=== PATIENT | male | born 1995 | race African-American/Black ===

== ENCOUNTER 2017-02-04 20:03 | Emergency (ER) | payer MEDICAID, OTHER ==
[~2017-02-04] VITALS: Ht 172.7 cm; Wt 79.4 kg
[~2017-02-04 20:03] MED LIST: BENADRYL25 M3 PO; KENALOG 0.1% CR15 GM APPLIC; KENALOG 0.1% LO60 ML APPLIC; MEDROL DOSEPAK4 MG ORAL; NKM
[2017-02-04] MEDS ORDERED: CLARITIN10 MG ORAL (21:10)
[2017-02-04] MEDS ORDERED: GUAIFENESIN-CO118 M1 ORAL (21:10)
[2017-02-04 21:45] VITALS: BP 122/44
--- NOTE | 2017-02-05 13:35 | Diagnostic Imaging Report ---
Indication: Chest pain, productive cough Technique: Single portable AP view of the chest. Findings: Comparison: None. Small circumscribed lucencies now project over the glenoid process of the right scapula. Small triangular osseous density now projects adjacent to the distal margin of the left clavicle. The extra pulmonary soft tissues, cardiomediastinal silhouette, pulmonary vasculature and parenchyma, and pleural surfaces are unremarkable. IMPRESSION: No evidence of acute cardiopulmonary disease, unchanged Suggestion of interval fracture of distal end of left clavicle, acuity indeterminate. Recommend dedicated left shoulder radiographs for further evaluation. Small cystic lucencies projecting over right glenoid process, nonspecific, may represent overlying soft tissue gas, vacuum phenomenon within the glenohumeral joint, or degenerative cysts. Recommend dedicated right shoulder radiographs for further evaluation..
--- NOTE | 2017-02-08 19:36 | Emergency Room Report ---
History of Present Illness General Chief Complaint: Upper Respiratory Illness Source: Patient Present Illness HPI Patient's 21-year-old male who presented after having increased cough and nasal congestion for several weeks. Patient gradual onset of symptoms. Patient was noted to have been coughing some yellow-green sputum. He had not been vomiting. He denied any fever. He reported having a moderate sore throat. He denied any leg pain or swelling. Patient had symptoms for several months. The patient had a previous been taking allergy medications. Allergies: Coded Allergies: No Known Allergies (Unverified , 10/30/12) Patient History Past Medical History: see triage record Reviewed Nursing Documentation: PMH: Agreed, PSxH: Agreed Nursing Documentation-PMH Past Medical History: No Stated History Review of Systems All Other Systems: negative except mentioned in HPI Physical Exam Vital Signs Date Time Temp Pulse Resp B/P Pulse Ox O2 Delivery O2 Flow Rate FiO2 02/04/17 20:31 98.1 86 18 122/44 98 Room Air General Appearance: well appearing, no apparent distress, alert, GCS 15 Head: normocephalic, atraumatic ENT: hearing grossly normal, normal voice Neck: full range of motion, supple Respiratory: no respiratory distress, speaking full sentences Gastrointestinal: normal inspection, normal bowel sounds, non tender, soft Musculoskeletal: normal inspection, back normal, digits/nails normal, no calf tenderness Neurologic: normal inspection, alert, oriented x3, responsive, normal gait Psychiatric: mood/affect normal Skin: no rash Medical Decision Making Diagnostic Impression: Primary Impression: Chronic cough ER Course Patient presented for cough. Differential diagnosis included but was not limited to bronchitis, pneumonia, pulmonary embolism, pericarditis, asthma, foreign body. X-ray imaging of the chest one view interpreted by me showed no evident infiltrate with normal cardiac size with no pneumothorax. The patient was given symptomatic treatment prescriptions.The patient is advised to follow up with primary care doctor in 1-2 days. Patient is advised to return if any worsening condition or if any changes in status that are concerning. Last Vital Signs Date Time Temp Pulse Resp B/P Pulse Ox O2 Delivery O2 Flow Rate FiO2 02/04/17 21:45 98.1 18 122/44 98 Room Air 02/04/17 20:35 72 Status: improved Disposition: HOME, SELF-CARE Condition: Stable Scripts Guaifenesin/Codeine Phos* (ROBITUSSIN AC*) 118 Ml Liquid 5 ML ORAL Q6H Y for For Cough, #118 ML 0 Refills Prov: Ezequiel Yarbrough 02/04/17 Loratadine (CLARITIN) 10 Mg Tablet 10 MG ORAL DAILY, #30 TAB Prov: Ezequiel Yarbrough 02/04/17 Referrals: NOT CHOSEN [facility]/,REFERRING (PCP) Patient Instructions: Upper Respiratory Infection, Adult Ezequiel Yarbrough February 08, 2017 19:36
== END 2017-02-04 21:42 | disposition home or self-care (01) ==
LOC: EMR 20:55
DX: R05 Cough (principal); R09.81 Nasal congestion
CPT/HCPCS: 71010; 99284

== ENCOUNTER 2017-03-06 00:28 | Emergency (ER) | payer MEDICAID ==
[~2017-03-06] VITALS: Ht 172.7 cm; Wt 79.8 kg
[~2017-03-06 00:28] MED LIST changes: +CLARITIN10 MG ORAL; +GUAIFENESIN-CO118 M1 ORAL
[2017-03-06 00:45] VITALS: BP 118/65
--- NOTE | 2017-03-06 00:58 | Emergency Room Report ---
History of Present Illness General Chief Complaint: Male Urogenital Problems Source: Patient Present Illness HPI 21YOM walk-in with 2 complaints 1) Cough for 6 months. Dry. No associated fever/chills. Improved with Rx cough syrup, loratadine given here in January. + fam history of asthma. Cough worse after training for football. 2) Left testicle pain. No acute trauma. No dysuria, dishcharge. 1 day. Negative STD testing last week. Allergies: Coded Allergies: No Known Allergies (Unverified , 10/30/12) Patient History Past Medical History: none Past Surgical History: none Pertinent Family History: asthma Social History: Denies: alcohol use, drug use, smoking Immunizations: UTD Reviewed Nursing Documentation: PMH: Agreed, PSxH: Agreed Review of Systems All Other Systems: negative except mentioned in HPI Physical Exam Vital Signs Date Time Temp Pulse Resp B/P Pulse Ox O2 Delivery O2 Flow Rate FiO2 03/06/17 00:36 98.1 80 18 118/65 98 Room Air Sp02 EP Interpretation: reviewed, normal General Appearance: normal inspection, well appearing, no apparent distress, alert, GCS 15, non-toxic, other - Very well appearing, laughing, texting on cell phone Head: normocephalic, atraumatic Eyes: bilateral eye EOMI, bilateral eye PERRL ENT: normal ENT inspection, hearing grossly normal, normal voice Neck: normal inspection, full range of motion, supple, no bony tend Respiratory: normal inspection, lungs clear, normal breath sounds, no respiratory distress, no retraction, no wheezing Cardiovascular #1: regular rate, rhythm, no edema Gastrointestinal: normal inspection, normal bowel sounds, non tender, soft, no guarding, no hernia Genitourinary: no CVA tenderness, penis normal, scrotum normal Musculoskeletal: normal inspection, back normal, normal range of motion, Opal' s Sign negative Neurologic: normal inspection, alert, oriented x3, responsive, fender finisher III-XII nml as tested, speech normal Psychiatric: normal inspection, judgement/insight normal, mood/affect normal Skin: normal inspection, normal color, no rash Medical Decision Making Diagnostic Impression: Primary Impression: Chronic cough Additional Impression: Left testicular pain ER Course Chronic cough - VSS. Afebrile. - Not hypoxic. No acute distress - Not worse with lying down, after eating. Doubt GERD - Worse with exercising, + fam history of asthma. Possible exercise induced asthma - Given duration, CAP also possibility although bronchitis viral most likely Dx - Rx Z-pack, Refill cough medicine, Ventolin to be used before/after training/ exercise Left testicular pain - No acute trauma - Non focal exam - Doubt torsion given well apperance, normal vertical lie of left testicle - UA: No WBCs or hematuria. Doubt epididmytis. - Advised to refrain from frequent sexual intercourse until pain resolves Last Vital Signs Date Time Temp Pulse Resp B/P Pulse Ox O2 Delivery O2 Flow Rate FiO2 03/06/17 00:36 98.1 80 18 118/65 98 Room Air Status: improved Disposition: HOME, SELF-CARE Scripts Albuterol Sulfate (VENTOLIN HFA) 18 Gm Hfa.aer.ad 1 PUFF INH EVERY 6 HOURS for For Cough, #18 GM 0 Refills Prov: FORREST JEFFREY M.D. 03/06/17 Azithromycin* (ZITHROMAX*) 250 Mg Tablet 250 MG ORAL DAILY, #6 TAB 0 Refills Take two tablets by mouth today, then take one tablet by mouth daily for four days Prov: FORREST JEFFREY M.D. 03/06/17 Guaifenesin/Codeine Phos* (ROBITUSSIN AC*) 118 Ml Liquid 5 ML ORAL Q6H Y for For Cough, #118 ML 0 Refills Prov: FORREST JEFFREY M.D. 03/06/17 FORREST JEFFREY M.D. Mar 06, 2017 00:58
[2017-03-06 01:03] LABS: APPEARANCE,URINE CLEAR; KETONES,URINE 2+ (NEGATIVE); LEUKOCYTE ESTERASE ,URINE 1+ (NEGATIVE); NITRITE,URINE NEGATIVE (NEGATIVE); PH,URINE 7 (4.5-8.0); PROTEIN,URINE NEGATIVE (NEGATIVE); UROBILINOGEN,URINE NORMAL MG/DL (0.0-1.0)
[2017-03-06] MEDS ORDERED: GUAIFENESIN-CO118 M1 ORAL (01:48)
[2017-03-06] MEDS ORDERED: VENTOLIN HFA18 GM INH (01:48)
[2017-03-06] MEDS ORDERED: AZITHROMYCIN250 MG ORAL (01:48)
[2017-03-06 01:55] LABS: RBC,URINE 0-2 /HPF (0 - 0)
[2017-03-06 01:56] LABS: AMORPHOUS SEDIMENT,UR MANY /LPF; BACTERIA,URINE FEW /HPF; SQUAMOUS EPITHELIAL CELL,UR FEW /LPF (NONE/OCC)
[2017-03-06 02:10] VITALS: BP 115/68
== END 2017-03-06 02:10 | disposition home or self-care (01) ==
LOC: EMR 00:45
DX: R05 Cough (principal); N50.812 Left testicular pain
CPT/HCPCS: 81003; 99284

== ENCOUNTER 2017-05-16 01:42 | Emergency (ER) | payer MEDICAID ==
[~2017-05-16] VITALS: Ht 172.7 cm; Wt 79.4 kg
[~2017-05-16 01:42] MED LIST changes: +AZITHROMYCIN250 MG ORAL; +VENTOLIN HFA18 GM INH
[2017-05-16] MEDS ORDERED: NKM (02:04)
[2017-05-16 02:05] VITALS: BP 149/79
[2017-05-16] MEDS ORDERED: AUGMENTIN 875-1 EAC1 ORAL (02:20)
[2017-05-16] MEDS ORDERED: CLARITIN-D 241 EACH PO (02:20)
--- NOTE | 2017-05-16 02:21 | Emergency Room Report ---
History of Present Illness General Chief Complaint: Earache Source: Patient Present Illness HPI This is a 22-year-old male with no past medical history. He presents with chief complaint. One is a chronic cough that has been ongoing for many months. He said it was started in August when he was in [place]. He gets sick and this has been coughing on and off. Seen multiple doctors here and had urgent care. Been on antibiotics with no relief. Cough medicine without any relief. Also got steroids. He came in also with the complaint of left ear pain. Onset for last 2 days. No recent cold. No nausea no vomiting. No fever or chills. Allergies: Coded Allergies: No Known Allergies (Unverified , 10/30/12) Patient History Past Medical History: see triage record, old chart reviewed Past Surgical History: none Pertinent Family History: none Social History: Denies: smoking Immunizations: other Reviewed Nursing Documentation: PMH: Agreed, PSxH: Agreed Nursing Documentation-PMH Past Medical History: No Stated History Review of Systems Eye: Denies: eye pain, blurred vision ENT: Reports: ear pain, Denies: nose congestion, throat swelling Respiratory: Reports: cough, Denies: shortness of breath Cardiovascular: Denies: chest pain, palpitations Gastrointestinal: Denies: abdominal pain, diarrhea, nausea, vomiting Musculoskeletal: Denies: back pain, joint pain Skin: Denies: rash Neurological: Denies: headache, numbness Endocrine: Denies: increased thirst, increased urine Hematologic/Lymphatic: Denies: easy bruising All Other Systems: negative except mentioned in HPI Physical Exam Vital Signs Date Time Temp Pulse Resp B/P (MAP) Pulse Ox O2 Delivery O2 Flow Rate FiO2 05/16/17 02:02 97.9 64 14 149/79 100 Room Air vitals unremarkable Sp02 EP Interpretation: reviewed, normal General Appearance: well appearing, no apparent distress, alert Head: normocephalic, atraumatic Eyes: bilateral eye PERRL, bilateral eye EOMI ENT: hearing grossly normal, normal pharynx, other - Left TM with effusion and bulging TM. Neck: full range of motion, supple, no meningismus Respiratory: chest non-tender, lungs clear, normal breath sounds Cardiovascular #1: regular rate, rhythm, no murmur Gastrointestinal: normal bowel sounds, non tender, no mass, no organomegaly, no bruit, non-distended Musculoskeletal: back normal, gait/station normal, normal range of motion Psychiatric: mood/affect normal Skin: warm/dry Medical Decision Making Diagnostic Impression: Primary Impression: Chronic cough Additional Impression: Left otitis media Qualified Codes: H65.02 - Acute serous otitis media, left ear ER Course Patient with a cough. Lungs are clear. No evidence of pneumonia. This may be a postnasal drip. No evidence of pneumonia. His ear show effusion. Most likely sinus related. We'll put on decongestant antibiotics. He may have allergies. If not better he may benefit from referral to see a specialist. Last Vital Signs Date Time Temp Pulse Resp B/P (MAP) Pulse Ox O2 Delivery O2 Flow Rate FiO2 05/16/17 02:02 97.9 64 14 149/79 100 Room Air Status: unchanged Disposition: HOME, SELF-CARE Condition: Stable Scripts Amoxicillin/Potassium Clav 875-125* (AUGMENTIN 875-125 TABLET*) 1 Each Tablet 1 TAB ORAL TWICE A DAY, #14 TAB Prov: AMANDA PERALTA M.D. 05/16/17 Loratadine/Pseudoephedrine (CLARITIN-D 24 HOUR TABLET) 1 Each Tab.er.24h 1 TAB PO DAILY, #30 TAB Prov: AMANDA PERALTA M.D. 05/16/17 Patient Instructions: Otitis Media, Adult, [id number] Additional Instructions: Followup with your DrVandana in 7 days. You may benefit from referral to see if nose and throat DrVandana or one specialist if not better. Return if symptom worsen. AMANDA PERALTA M.D. May 16, 2017 02:20
[2017-05-16 02:30] VITALS: BP 140/72
== END 2017-05-16 02:30 | disposition home or self-care (01) ==
LOC: EMR 02:15
DX: R05 Cough (principal); H65.02 Acute serous otitis media, left ear
CPT/HCPCS: 99284

== ENCOUNTER 2017-11-17 22:35 | Emergency (ER) | payer MEDICAID ==
[~2017-11-17] VITALS: Ht 172.7 cm; Wt 79.4 kg
[~2017-11-17 22:35] MED LIST changes: +AUGMENTIN 875-1 EAC1 ORAL; +CLARITIN-D 241 EACH PO
--- NOTE | 2017-11-17 23:14 | Emergency Room Report ---
History of Present Illness General Chief Complaint: General Complaint Source: Patient Present Illness HPI Patient presents with complaints of cough Reports of the cough has been ongoing for the past 2 years Denies any chest pain or shortness of breath Denies any vomiting patient feels that he has been more gassy than normal Denies any vomiting or diarrhea denies any recent travel However he reports that 2 years ago when he visited [place] is when his symptoms initially started Allergies: Coded Allergies: No Known Allergies (Unverified , 10/30/12) Patient History Past Medical History: see triage record Pertinent Family History: none Reviewed Nursing Documentation: PMH: Agreed, PSxH: Agreed Nursing Documentation-PMH Past Medical History: No Stated History Review of Systems All Other Systems: negative except mentioned in HPI Physical Exam Vital Signs Date Time Temp Pulse Resp B/P (MAP) Pulse Ox O2 Delivery O2 Flow Rate FiO2 11/17/17 22:47 97.7 70 16 131/78 99 Room Air 97.7 Sp02 EP Interpretation: reviewed, normal General Appearance: well appearing, no apparent distress Head: normocephalic, atraumatic Eyes: bilateral eye PERRL, bilateral eye EOMI ENT: hearing grossly normal, normal pharynx, TMs + canals normal, uvula midline Neck: full range of motion, supple, no meningismus, no bony tend Respiratory: lungs clear, normal breath sounds, no rhonchi, no respiratory distress, no retraction, no accessory muscle use Cardiovascular #1: normal peripheral pulses, regular rate, rhythm, no edema, no gallop, no JVD, no murmur Gastrointestinal: normal bowel sounds, non tender, soft, no mass, no organomegaly, non-distended, no guarding, no hernia, no pulsatile mass, no rebound Genitourinary: no CVA tenderness Musculoskeletal: normal inspection Neurologic: oriented x3, responsive, deputy general counsel III-XII nml as tested, motor strength/ tone normal, sensory intact Psychiatric: mood/affect normal Skin: normal color, no rash, warm/dry, palpation normal Lymphatic: normal inspection, no adenopathy Medical Decision Making Diagnostic Impression: Primary Impression: Chronic cough ER Course Will differentials considered Including but not limited to cardiac, cardiopulmonary, gastric pathology Patient has had previous x-ray here There appears to be no significant change from his previous presentation Patient remains hemodynamically stable lungs sounds are appropriate Patient reports that he has not been able to see any primary physician since his initial visit And was provided with appropriate outpatient followup Last Vital Signs Date Time Temp Pulse Resp B/P (MAP) Pulse Ox O2 Delivery O2 Flow Rate FiO2 11/17/17 22:47 97.7 70 16 131/78 99 Room Air 97.7 Status: unchanged Disposition: HOME, SELF-CARE Condition: Stable Additional Instructions: Patient is provided with the discharge instructions notified to follow up with primary doctor in the next 2-3 days otherwise return to the er with any worsening symptoms. Please note that this report is being documented using [employer] technology. This can lead to erroneous entry secondary to incorrect interpretation by the dictating instrument. BARBIE KINSEY D.O. Nov 17, 2017 23:14
[2017-11-17 23:31] VITALS: BP 131/78
== END 2017-11-18 00:19 | disposition home or self-care (01) ==
LOC: EMR 22:55
DX: R05 Cough (principal)
CPT/HCPCS: 99282

== ENCOUNTER 2020-02-02 20:52 | Emergency (ER) | payer MEDICAID ==
[~2020-02-02] VITALS: Ht 172.7 cm; Wt 81.6 kg
[~2020-02-02 20:52] MED LIST changes: +IBUPROFEN600 MG ORAL; +PROMETHAZINE-C118 M1 ORAL
[2020-02-02 21:15] VITALS: BP 122/80
--- NOTE | 2020-02-02 21:15 | NUR ---
ED Nurse Note: Patient walked in from home d/t left chest tightness radiating to left shoulder. Patient aao x 4 and ambulatory with steady gait. No other medical history. Patient denies cough or shortness of breath. No acute distress noted.
--- NOTE | 2020-02-02 21:17 | NUR ---
ED Nurse Note: ERMD at bedside.
--- NOTE | 2020-02-02 21:27 | NUR ---
ED Nurse Note: Xray at bedside.
[2020-02-02] MEDS ORDERED: FAMOTIDINE20 MG ORAL (21:42)
--- NOTE | 2020-02-02 21:42 | Emergency Room Report ---
History of Present Illness General Chief Complaint: General Complaint Source: Patient Present Illness HPI 24-year-old male presents with vague chest discomfort x4 days no aggravating alleviating factors severity is mild, intermittent patient notices that he has a lot of reflux-like symptoms he drinks some alcohol, no dyspnea on exertion no shortness of breath no nausea no vomiting, patient presents for evaluation Allergies: Coded Allergies: No Known Allergies (Unverified , 02/25/19) COVID-19 Screening Contact w/high risk pt: No Recent Travel to affected area: No Experienced COVID-19 symptoms?: No Patient History Past Medical History: see triage record Social History: Reports: alcohol use Reviewed Nursing Documentation: PMH: Agreed; PSxH: Agreed Nursing Documentation-PMH Past Medical History: No Stated History Review of Systems All Other Systems: negative except mentioned in HPI Physical Exam Vital Signs Date Time Temp Pulse Resp B/P (MAP) Pulse Ox O2 Delivery O2 Flow Rate FiO2 02/02/20 21:04 98.4 75 18 126/81 (96) 98 Room Air Sp02 EP Interpretation: reviewed, normal General Appearance: well appearing, no apparent distress, alert Head: normocephalic, atraumatic Eyes: bilateral eye PERRL, bilateral eye EOMI ENT: uvula midline, moist mucus membranes Neck: supple, thyroid normal, supple/symm/no masses Respiratory: lungs clear, no respiratory distress, no retraction, no accessory muscle use Cardiovascular #1: normal peripheral pulses, regular rate, rhythm, no edema, no gallop, no murmur Gastrointestinal: non tender, soft, no guarding, no rebound Musculoskeletal: normal inspection Neurologic: alert, oriented x3 Psychiatric: mood/affect normal Skin: no rash, warm/dry Medical Decision Making Diagnostic Impression: Primary Impression: Atypical chest pain ER Course No evidence of ACS, pulmonary embolism, pneumothorax, pneumonia. Historically not abrupt in onset, tearing or ripping, pulses symmetric, no evidence of aortic dissection. Patient most likely with GERD-like symptoms will provide famotidine disposition home with return cautions follow-up with PCP EKG Diagnostic Results EKG Time: 21:18 EP Interpretation: NSR, rate 65, QTc 391, no acute ST elevations, normal axis Chest X-Ray Diagnostic Results Chest X-Ray Diagnostic Results : Chest X-Ray Ordered: Yes # of Views/Limited/Complete: 1 View Indication: Chest Pain Interpretation: no consolidation, no effusion, no pneumothorax, no acute cardiopulmonary disease Impression: No acute disease Electronically Signed by: Ervin Byrne MD Last Vital Signs Date Time Temp Pulse Resp B/P (MAP) Pulse Ox O2 Delivery O2 Flow Rate FiO2 02/02/20 21:15 98.4 72 18 122/80 98 Room Air Disposition: HOME, SELF-CARE Condition: Stable Scripts Famotidine* (Pepcid 20mg tablet*) 20 Mg Tablet 20 MG ORAL TWICE A DAY, #60 TAB 0 Refills Prov: Ervin Byrne MD 02/02/20 [facility] ([facility]) Patient Instructions: Gastroesophageal Reflux Disease, Adult, [id number] Additional Instructions: The patient was provided with discharge instructions, notified to follow-up with a primary care doctor and or specialist in the next 24-48 hours, and to return to the ED if they have worsening of their symptoms. Please note that this report is being documented using [employer] technology. This can lead to erroneous entry secondary to incorrect interpretation by the dictating instrument. Ervin Byrne MD February 02, 2020 21:42
[2020-02-02 21:43] VITALS: BP 125/82
--- NOTE | 2020-02-02 21:43 | NUR ---
ER DISCHARGE NOTE: Patient is cleared to be discharged per ERMD, pt is aox4, on room air, with stable vital signs. pt was given dc and prescription instructions, pt was able to verbalize understanding, pt id band removed. pt is able to ambulate with steady gait. pt took all belongings. pt stable upon discharge.
== END 2020-02-02 21:43 | disposition home or self-care (01) ==
LOC: EMR 21:29
DX: R07.89 Other chest pain (principal); Z72.89 Other problems related to lifestyle
CPT/HCPCS: 71045; 93005; Z7502; 99283

== ENCOUNTER 2020-04-01 19:23 | Emergency (ER) | payer MEDICAID ==
[~2020-04-01] VITALS: Ht 172.7 cm; Wt 81.6 kg
[~2020-04-01 19:23] MED LIST changes: +FAMOTIDINE20 MG ORAL
[2020-04-01 19:43] VITALS: BP 129/76
--- NOTE | 2020-04-01 19:43 | NUR ---
ED Nurse Note: Pt ambulated into ed from home [place] left shoulder pain after weight lifting. Pt states he heard a "pop" sound and noticed a bump on upper left arm near shoulder area. Pt ROM decreased in affected arm, pt denies losing sensation, having numbness or tingling. Pt aao x 4, ambulatory with steady gait. awaiting ERMD at bedside.
--- NOTE | 2020-04-01 20:00 | NUR ---
ED Nurse Note: ERMD at bedside
--- NOTE | 2020-04-01 20:10 | NUR ---
ED Nurse Note: xray at bedside
--- NOTE | 2020-04-01 20:24 | NUR ---
ED Nurse Note: all medications administered, pt tolerated well no ss of distress noted. will continue to monitor.
--- NOTE | 2020-04-01 20:39 | Diagnostic Imaging Report ---
EXAM: XR Left Shoulder Complete, 2 or More Views CLINICAL HISTORY: PAIN TECHNIQUE: Two or more views of the left shoulder. COMPARISON: No relevant prior studies available. FINDINGS: Bones/joints: No fracture or malalignment. Chronic ossification at the distal clavicle, possible sequela of prior trauma. Soft tissues: Unremarkable. IMPRESSION: 1. No fracture or malalignment. 2. Chronic ossification at the distal clavicle, possible sequela of prior trauma.
[2020-04-01] MEDS ORDERED: IBUPROFEN600 M1 ORAL (20:42)
[2020-04-01 20:50] VITALS: BP 115/70
--- NOTE | 2020-04-01 20:50 | NUR ---
ER DISCHARGE NOTE: Patient is cleared to be discharged per ERMD, pt is aox4, on room air, with stable vital signs. pt was given dc and prescription instructions, pt was able to verbalize understanding, pt id band and removed without complications. pt is able to ambulate with steady gait. pt took all belongings.
--- NOTE | 2020-04-01 22:40 | Emergency Room Report ---
History of Present Illness General Chief Complaint: Upper Extremity Injury Source: Patient Present Illness HPI 24-year-old male presents to ED complaining of left shoulder pain. Started yesterday after lifting weights at the gym. [place] a pop in his left shoulder. Dull, 6 out of 10, nonradiating. Notes full range of motion. Denies any other injuries. No other aggravating relieving factors. Denies any other associated symptoms Allergies: Coded Allergies: No Known Allergies (Unverified , 02/25/19) COVID-19 Screening Contact w/high risk pt: No Recent Travel to affected area: No Experienced COVID-19 symptoms?: No COVID-19 Testing performed ENROLLMENT CLERK: No Patient History Past Medical History: none Past Surgical History: none Pertinent Family History: none Social History: Denies: smoking, alcohol use, drug use Immunizations: UTD Reviewed Nursing Documentation: PMH: Agreed; PSxH: Agreed Nursing Documentation-PMH Past Medical History: No Stated History Review of Systems All Other Systems: negative except mentioned in HPI Physical Exam Vital Signs Date Time Temp Pulse Resp B/P (MAP) Pulse Ox O2 Delivery O2 Flow Rate FiO2 04/01/20 19:33 98.2 82 18 129/76 (93) 95 Room Air Sp02 EP Interpretation: reviewed, normal General Appearance: no apparent distress, alert, GCS 15, non-toxic Head: normocephalic, atraumatic Eyes: bilateral eye normal inspection, bilateral eye PERRL ENT: hearing grossly normal, normal pharynx, no angioedema, normal voice Neck: full range of motion, supple/symm/no masses Respiratory: chest non-tender, lungs clear, normal breath sounds, speaking full sentences Cardiovascular #1: regular rate, rhythm, no edema Cardiovascular #2: 2+ carotid (R), 2+ carotid (L), 2+ radial (R), 2+ radial (L) , 2+ dorsalis pedis (R), 2+ dorsalis pedis (L) Gastrointestinal: normal bowel sounds, non tender, soft, non-distended, no guarding, no rebound Rectal: deferred Genitourinary: normal inspection, no CVA tenderness Musculoskeletal: back normal, normal range of motion, gait/station normal, tender - L bicep Neurologic: alert, motor strength/tone normal, oriented x3, sensory intact, responsive, speech normal Psychiatric: judgement/insight normal, memory normal, mood/affect normal, no suicidal/homicidal ideation Reflexes: 3+ bicep (R), 3+ bicep (L), 3+ tricep (R), 3+ tricep (L), 3+ knee (R) , 3+ knee (L) Lymphatic: no adenopathy Procedures Splinting Splinting : Consent: Verbal Pre-Made Type: sling Pre-Proc Neuro Vasc Exam: normal Post-Proc Neuro Vasc Exam: normal Patient Tolerated: Well Complications: None Medical Decision Making Diagnostic Impression: Primary Impression: Injury of biceps brachii muscle Other X-Ray Diagnostic Results Other X-Ray Diagnostic Results : X-Ray ordered: L shoulder # of Views/Limited Vs Complete: 3 View Indication: Pain EP Interpretation: Yes Interpretation: no dislocation, no soft tissue swelling, no fractures Impression: No acute disease Electronically Signed by: Electronically signed by Kana Rodriguez MD Last Vital Signs Date Time Temp Pulse Resp B/P (MAP) Pulse Ox O2 Delivery O2 Flow Rate FiO2 04/01/20 20:50 98.2 76 18 115/70 99 Room Air Status: improved Disposition: HOME, SELF-CARE Condition: Stable Scripts Ibuprofen* (MOTRIN*) 600 Mg Tablet 600 MG ORAL Q8H PRN for FOR PAIN, #30 TAB 0 Refills Prov: Kana Rodriguez MD 04/01/20 [facility] Open 24 hour /7 days a week by Appointment Only [address] [facility] [address] [facility] [address] Patient Instructions: Biceps Tendon Disruption (Proximal) With [facility] Kana Rodriguez MD Apr 01, 2020 22:40
== END 2020-04-01 20:50 | disposition home or self-care (01) ==
LOC: EMR 20:44
DX: S46.202A Unspecified injury of muscle, fascia and tendon of other parts of biceps, left arm, initial encounter (principal); X58.XXXA Exposure to other specified factors, initial encounter; Y92.9 Unspecified place or not applicable
CPT/HCPCS: 73030; Z7502; 99283

== ENCOUNTER → 2020-10-17 | Emergency (ER) | payer MEDICAID ==
[~2020-10-17] VITALS: Ht 172.7 cm; Wt 86.2 kg
[~2020-10-17] MED LIST changes: +IBUPROFEN600 M1 ORAL; +Ketorolac 30mg Inj IM ONE; +NAPROXEN500 M2 ORAL
--- NOTE | 2020-10-17 19:41 | Emergency Room Report ---
History of Present Illness General Chief Complaint: Pain Source: Patient Present Illness HPI Patient is a 25-year-old male denies any significant past medical history who presents to the ER complaining of right-sided flank pain. Patient states that it started 1 week ago and has been getting worse. He denies any trauma. He denies any fever or chills. He denies any abdominal pain nausea or vomiting. He denies any dysuria or hematuria. He states he has not taken any medications for the pain. No history of similar symptoms. No changes to his bowel or bladder habits. No focal weakness and no paresthesias. Allergies: Coded Allergies: No Known Allergies (Unverified , 02/25/19) COVID-19 Screening Contact w/high risk pt: No Recent Travel to affected area: No Experienced COVID-19 symptoms?: No COVID-19 Testing performed SHAFT SINKER: No Patient History Reviewed Nursing Documentation: PMH: Agreed; PSxH: Agreed Nursing Documentation-PMH Past Medical History: No Stated History Review of Systems All Other Systems: negative except mentioned in HPI Physical Exam Vital Signs Date Time Temp Pulse Resp B/P (MAP) Pulse Ox O2 Delivery O2 Flow Rate FiO2 10/17/20 19:32 98.2 80 18 114/83 (93) 95 Room Air Sp02 EP Interpretation: reviewed, normal General Appearance: no apparent distress, alert, GCS 15, non-toxic Head: normocephalic, atraumatic Eyes: bilateral eye normal inspection, bilateral eye PERRL ENT: hearing grossly normal, normal pharynx, no angioedema, normal voice Neck: full range of motion, supple/symm/no masses Respiratory: chest non-tender, lungs clear, normal breath sounds, speaking full sentences Cardiovascular #1: regular rate, rhythm, no edema Gastrointestinal: normal bowel sounds, non tender, soft, non-distended, no guar ding, no rebound Rectal: deferred, other - No saddle anesthesia Musculoskeletal: normal range of motion, other - Right flank pain but no definite CVA tenderness 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 Patient's CT demonstrates no acute intra-abdominal or pelvic pathology. UA negative. After discussing risks and benefits of further diagnostics, treatment plans, as well as indications for and risks of admission, the patient is agreeable to being discharged home. I have explained that their evaluation and treatment in the emergency department today is an important step towards them achieving better health but that their evaluation today is not intended to replace further evaluation and treatment by a physician in their local clinic. I have explained that while the current findings suggest no immediate life threatening emergency they will require further evaluation and treatment by a physician of their choice in their area. They understand that it will be necessary for them to review the final reports of their ED visit with their clinic physician. We have reviewed indications for return to the Emergency Department. I have explained that additional time may need to pass and/or additional testing as an outpatient may be necessary before a definitive diagnosis can be made. They tell me they are willing to follow up as instructed within the timeframe I recommend. They appear to understand what we discussed. Additionally they understand that if they are unable to be seen by an outpatient physician they are welcome, and in fact should, return to the Emergency Department for a repeat evaluation. The patient is stable at time of discharge. Laboratory Tests Test 10/17/20 19:16 Urine Color Pale yellow Urine Appearance Clear Urine pH 7 (4.5-8.0) Urine Specific [place] 1.010 (1.005-1.035) Urine Protein Negative (NEGATIVE) Urine Glucose (UA) Negative (NEGATIVE) Urine Ketones Negative (NEGATIVE) Urine Blood Negative (NEGATIVE) Urine Nitrite Negative (NEGATIVE) Urine Bilirubin Negative (NEGATIVE) Urine Urobilinogen Normal MG/DL (0.0-1.0) Urine Leukocyte Esterase Negative (NEGATIVE) Urine Opiates Screen Pending Urine Barbiturates Screen Pending Phencyclidine (PCP) Screen Pending Urine Amphetamines Screen Pending Urine Benzodiazepines Screen Pending Urine Cocaine Screen Pending Urine Marijuana (THC) Screen Pending Last Vital Signs Date Time Temp Pulse Resp B/P (MAP) Pulse Ox O2 Delivery O2 Flow Rate FiO2 10/17/20 19:32 98.2 80 18 114/83 (93) 95 Room Air Disposition: HOME, SELF-CARE Condition: Stable Scripts Naproxen* (NAPROXEN*) 500 Mg Tablet 500 MG ORAL TWICE A WEEK, #60 TAB 0 Refills Prov: Nya Galvan M.D. 10/17/20 Additional Instructions: The patient was provided with discharge instructions, notified to follow-up with a primary care doctor and or specialist in the next 24-48 hours, and to return to the ED if they have worsening of their symptoms. Please note that this report is being documented using [employer] technology. This can lead to erroneous entry secondary to incorrect interpretation by the dictating instrument. Nya Galvan M.D. Oct 17, 2020 19:41
[2020-10-17 19:43] VITALS: BP 131/77
--- NOTE | 2020-10-17 19:46 | NUR ---
ED Nurse Note: Pt came to ED form home with right flank pain of 5/10 and sitting on gurney. A/O x4 and vebally responsive. No SOB or acute distress. Vitals stable.
[2020-10-17 19:48] LABS: APPEARANCE,URINE CLEAR; BILIRUBIN, URINE NEGATIVE (NEGATIVE); COLOR,URINE PALE YELLOW; GLUCOSE, URINE (UA) NEGATIVE (NEGATIVE); KETONES,URINE NEGATIVE (NEGATIVE); LEUKOCYTE ESTERASE ,URINE NEGATIVE (NEGATIVE); NITRITE,URINE NEGATIVE (NEGATIVE); PH,URINE 7 (4.5-8.0); PROTEIN,URINE NEGATIVE (NEGATIVE); UROBILINOGEN,URINE NORMAL MG/DL (0.0-1.0)
--- NOTE | 2020-10-17 20:12 | Diagnostic Imaging Report ---
EXAM: CT Abdomen and Pelvis Without Intravenous Contrast CLINICAL HISTORY: FLANK TECHNIQUE: Axial computed tomography images of the abdomen and pelvis without intravenous contrast. CTDI is 6.5 mGy and DLP is 367.9 mGy-cm. One or more of the following dose reduction techniques were used: automated exposure control, adjustment of the mA and/or kV according to patient size, use of iterative reconstruction technique. Coronal and sagittal reformatted images were created and reviewed. COMPARISON: No relevant prior studies available. FINDINGS: Lung bases: Unremarkable. No mass. No consolidation. ABDOMEN: Liver: Unremarkable. Gallbladder and bile ducts: Unremarkable. No calcified stones. No ductal dilation. Pancreas: Unremarkable. No ductal dilation. Spleen: Unremarkable. No splenomegaly. Adrenals: Unremarkable. No mass. Kidneys and ureters: No urolithiasis. No hydronephrosis. Stomach and bowel: Unremarkable. No obstruction. No mucosal thickening. PELVIS: Appendix: No findings to suggest acute appendicitis. Bladder: Urinary bladder wall thickening. No stones. Reproductive: Unremarkable as visualized. ABDOMEN and PELVIS: Intraperitoneal space: Unremarkable. No free air. No significant fluid collection. Bones/joints: Bilateral L5 spondylolysis with listhesis. No acute fracture. No dislocation. Soft tissues: Unremarkable. Vasculature: Unremarkable. No abdominal aortic aneurysm. Lymph nodes: Unremarkable. No enlarged lymph nodes. IMPRESSION: 1. Urinary bladder wall thickening could be incidental, due to high outlet pressures, or could represent cystitis. 2. No urolithiasis. 3. Otherwise no acute abnormality definitively identified to account for patient presentation. 4. Bilateral L5 spondylolysis with listhesis.
--- NOTE | 2020-10-17 20:17 | NUR ---
ED Nurse Note: Pt given pain medication injection and toelrated well. Pain subsided to 0/10. Discharge paperwork given to pt and prescription also. Pt checked out and walked to private car.
[2020-10-17 20:20] VITALS: BP 130/72
== END | disposition home or self-care (01) ==
LOC: EMR 19:40
DX: M54.9 Dorsalgia, unspecified (principal); T14.8XXA Other injury of unspecified body region, initial encounter; X58.XXXA Exposure to other specified factors, initial encounter; Y92.9 Unspecified place or not applicable; M47.816 Spondylosis without myelopathy or radiculopathy, lumbar region
CPT/HCPCS: 74176; 80307; 81003; 96372; J1885; Z7502; 99284